=== PATIENT | male | born 1985 | race African-American/Black ===

== ENCOUNTER 2023-07-22 01:06 | Emergency (ER) | payer MEDICAID ==
[~2023-07-22] VITALS: Ht 177.8 cm; Wt 74.8 kg
[2023-07-22] MEDS ORDERED: ACETAMINOPHEN 325 MG TABLET PO ONE (01:30)
[2023-07-22] MEDS ORDERED: KETOROLAC TROMETHAMINE INJ 30 MG/ML VIAL IM ONE (01:30)
[2023-07-22] MEDS ORDERED: KETOROLAC TROMETHAMINE INJ 30 MG/ML VIAL ONE (01:32)
[2023-07-22] MEDS ORDERED: ACETAMINOPHEN 325 MG TABLET ONE (01:42)
[2023-07-22] MEDS ORDERED: KETO10TA2 PO (04:48)
[2023-07-22] MEDS ORDERED: CYCL5TAB PO (04:48)
[2023-07-22] MEDS ORDERED: TRAMADOL HCL 50 MG TABLET ONE (04:53)
[2023-07-22] MEDS ORDERED: TRAMADOL HCL 50 MG TABLET PO ONE (05:00)
[2023-07-22 05:09] VITALS: BP 121/73; TEMP 98; O2SAT 99
== END 2023-07-22 05:09 | disposition home or self-care (01) ==
LOC: ER 01:16
DX: M25.551 Pain in right hip (principal); V89.2XXA Person injured in unspecified motor-vehicle accident, traffic, initial encounter; Y93.89 Activity, other specified; Y92.89 Other specified places as the place of occurrence of the external cause; Y99.8 Other external cause status
CPT/HCPCS: 99283; 96372; 73502; J1885